=== PATIENT | female | born 1985 | race African-American/Black ===

== ENCOUNTER 2023-12-10 11:48 | Emergency (ER) | payer SELFPAY ==
[2023-12-10] MEDS ORDERED: SILVER SULFADIAZINE 1% 25 GM TOP ONE (12:34)
[2023-12-10] MEDS ORDERED: SMZ./TMP. 800/160 MG TABLET ONE (12:34)
--- NOTE | 2023-12-10 13:00 | EDPHYS ---
Physician Documentation [facility] Name: Va Cardoza Age: 38 yrs Sex: Female : 1985 Arrival Date: 12/10/2023 Time: 11:48 Bed DX1 Private MD: ED Physician Washington Villavicencio HPI: 12/09 12:50 This 38 yrs old Black Female presents to ER via Ambulatory with complaints of Wound yudith Check. 12:50 Patient presents to ED for recheck of: cellulitis. The affected area is on the left yudith leg. Previous treatment: The patient was initially treated 14 day(s) ago. Progress: The patient reports decreased pain. The patient has experienced similar episodes in the past, a few times. Historical: - Allergies: 12:19 No Known Allergies; cm10 - Home Meds: 12:19 None [Active]; cm10 - PMHx: 12:19 None; cm10 - PSHx: 12:19 None; cm10 - Immunization history:: Adult Immunizations up to date. - Infectious Disease History:: Denies. - Social history:: Smoking status: Patient denies any tobacco usage or history of. - Family history:: not pertinent. ROS: 12:50 Constitutional: Negative for fever, chills, and weight loss, Eyes: Negative for injury, yudith pain, redness, and discharge, ENT: Negative for injury, pain, and discharge, Neck: Negative for injury, pain, and swelling, Cardiovascular: Negative for chest pain, palpitations, and edema, Respiratory: Negative for shortness of breath, cough, wheezing, and pleuritic chest pain, Abdomen/GI: Negative for abdominal pain, nausea, vomiting, diarrhea, and constipation, Back: Negative for injury and pain, : Negative for injury, bleeding, discharge, and swelling, Neuro: Negative for headache, weakness, numbness, tingling, and seizure, Psych: Negative for depression, anxiety, suicide ideation, homicidal ideation, and hallucinations, Allergy/Immunology: Negative for hives, rash, and allergies, Endocrine: Negative for neck swelling, polydipsia, polyuria, polyphagia, and marked weight changes, Hematologic/Lymphatic: Negative for swollen nodes, abnormal bleeding, and unusual bruising, 12:50 MS/extremity: Positive for erythema, pain, tenderness, of the left leg, 12:50 Skin: Positive for cellulitis, erythema, swelling, Exam: 12:50 Constitutional: This is a well developed, well nourished patient who is awake, alert, yudith and in no acute distress. Head/Face: Normocephalic, atraumatic. Eyes: Pupils equal round and reactive to light, extra-ocular motions intact. Lids and lashes normal. Conjunctiva and sclera are non-icteric and not injected. Cornea within normal limits. Periorbital areas with no swelling, redness, or edema. ENT: Nares patent. No nasal discharge, no septal abnormalities noted. Tympanic membranes are normal and external auditory canals are clear. Oropharynx with no redness, swelling, or masses, exudates, or evidence of obstruction, uvula midline. Mucous membranes moist. Neck: Trachea midline, no thyromegaly or masses palpated, and no cervical lymphadenopathy. Supple, full range of motion without nuchal rigidity, or vertebral point tenderness. No Meningismus. Chest/axilla: Normal chest wall appearance and motion. Nontender with no deformity. No lesions are appreciated. Cardiovascular: Regular rate and rhythm with a normal S1 and S2. No gallops, murmurs, or rubs. Normal PMI, no JVD. No pulse deficits. Respiratory: Lungs have equal breath sounds bilaterally, clear to auscultation and percussion. No rales, rhonchi or wheezes noted. No increased work of breathing, no retractions or nasal flaring. Abdomen/GI: Soft, non-tender, with normal bowel sounds. No distension or tympany. No guarding or rebound. No evidence of tenderness throughout. Back: No spinal tenderness. No costovertebral tenderness. Full range of motion. Skin: Warm, dry with normal turgor. Normal color with no rashes, no lesions, and no evidence of cellulitis. Neuro: Awake and alert, GCS 15, oriented to person, place, time, and situation. Cranial nerves II-XII grossly intact. Motor strength 5/5 in all extremities. Sensory grossly intact. Cerebellar exam normal. Normal gait. Psych: Awake, alert, with orientation to person, place and time. Behavior, mood, and affect are within normal limits. 12:50 Musculoskeletal/extremity: ROM: no acute changes, intact in all extremities, full active range of motion, full passive range of motion, Pulses: are normal with no appreciated deficits, Sensation intact. Compartment Syndrome exam of affected extremity: is normal. Weight bearing: able to fully bear weight, DVT Exam: no swelling, negative Homans' sign noted on exam, no appreciated bluish discoloration, no increased warmth, pain, tenderness, erythema, 12:50 Skin: abscess, not appreciated, cellulitis, that is minimal, induration, that is mild is noted, injury, is not appreciated, Vital Signs: 12:18 BP 124 / 84; Pulse 83; Resp 16; Temp 98.2; Pulse Ox 100% ; Weight 56.7 kg; Height 5 ft. cm10 3 in. ; Pain 0/10; 12:18 Body Mass Index 22.14 (56.70 kg, 160.02 cm) cm10 12:18 Pain Scale: Adult cm10 MDM: 12:10 Patient medically screened. yudith 12:54 Differential diagnosis: cellulitis. Data reviewed: vital signs, nurses notes. yudith Consideration of Admission/Observation Escalation of care including admission/observation considered. I considered the following discharge prescriptions or medication management in the emergency department Medications were administered in the Emergency Department. See MAR. Test considered but Not performed: Labs: no labs. Historians other than the Patient: pt well informed. Care significantly affected by the following chronic conditions: none. Administered Medications: 12:40 Drug: Silver SulfADIAZINE Topical Cream 1 % 1 application Topical once {Note: Apply ss liberal amount to 2 small wounds on left knee and thigh.} Route: Topical; Site: wound; 12:41 Follow up: Response: No adverse reaction ss 12:40 Drug: Trimethoprim-Sulfamethoxazole PO (160 mg-800 mg (DS) 1 tablet PO once Route: PO; ss 12:41 Follow up: Response: No adverse reaction ss Disposition Summary: 12/10/23 12:59 Discharge Ordered Notes: Location: Home yudith Problem: new yudith Symptoms: have improved yudith Condition: Stable yudith Diagnosis - Unspecified open wound, left lower leg - knee yudith Followup: yudith - With: Private Physician - When: 5 - 6 days - Reason: Recheck today's complaints, Continuance of care, Re-evaluation by your physician Followup: yudith - With: Cole Segura MD - When: 2 - 3 days - Reason: Recheck today's complaints, Re-evaluation by your physician Discharge Instructions: - Discharge Summary Sheet yudith - Delayed Wound Closure yudith - How to Change Your Wound Dressing yudith - Wound Care, Adult yudith - How to Change Your Wound Dressing, [id number] [facility] Forms: - Medication Reconciliation Form yudith - Antibiotic Education yudith - Prescription Opioid Use yudith - Patient Portal Instructions [facility] - Leadership Thank You Letter [facility] Prescriptions: - Silvadene 1 % Topical cream - Apply to affected area 1 application TOPICAL route every 8 hours; 30 gram; [facility] Refills: 0, Product Selection Permitted - Bactrim DS 800-160 mg Oral Tablet - take 1 tablet ORAL route every 12 hours for 10 days; 20 tablet; Refills: 0, [facility] Product Selection Permitted Signatures: Washington Villavicencio MD MD cha Blanchard, Shelby RN RN ss Luna Fuller RN RN cm10
--- NOTE | 2023-12-10 13:00 | ER ---
Nurse's Notes [facility] Name: Va Cardoza Age: 38 yrs Sex: Female : 1985 Arrival Date: 12/10/2023 Time: 11:48 Bed DX1 Private MD: Diagnosis: Unspecified open wound, left lower leg-knee Presentation: 12/09 12:18 Chief complaint: Patient states: Wounds to left knee onset a few weeks ago. Pt states cm10 that she fell. Pt here to have wound checked. No fever or chills. Coronavirus screen: Client denies travel out of the [place] in the last 14 days. Ebola Screen: Patient denies travel to an Ebola-affected area in the 21 days before illness onset. No symptoms or risks identified at this time. Initial Sepsis Screen: Does the patient meet any 2 criteria? No. Patient's initial sepsis screen is negative. Does the patient have a suspected source of infection? No. Patient's initial sepsis screen is negative. Risk Assessment: Do you want to hurt yourself or someone else? Patient reports no desire to harm self or others. Onset of symptoms was December 10, 2023. 12:18 Method Of Arrival: Ambulatory cm10 12:18 Acuity: GITA 4 cm10 Triage Assessment: 12:19 General: Appears in no apparent distress. comfortable, Behavior is calm, cooperative. cm10 Neuro: No deficits noted. Level of Consciousness is awake, alert, obeys commands, Oriented to person, place, time, situation, Appropriate for age. Respiratory: No deficits noted. Airway is patent Respiratory effort is even, unlabored, Respiratory pattern is regular, symmetrical. Derm: Wound noted left knee. Historical: - Allergies: 12:19 No Known Allergies; cm10 - Home Meds: 12:19 None [Active]; cm10 - PMHx: 12:19 None; cm10 - PSHx: 12:19 None; cm10 - Immunization history:: Adult Immunizations up to date. - Infectious Disease History:: Denies. - Social history:: Smoking status: Patient denies any tobacco usage or history of. - Family history:: not pertinent. Screenin:30 [facility] ED Fall Risk Assessment (Adult) History of falling in the last 3 months, ss including since admission No falls in past 3 months (0 pts) Confusion or Disorientation No (0 pts) Intoxicated or Sedated No (0 pts) Impaired Gait No (0 pts) Mobility Assist Device Used No (0 pt) Altered Elimination No (0 pt) Score/Fall Risk Level 0 - 2 = Low Risk Oriented to surroundings. Abuse screen: Denies threats or abuse. Denies injuries from another. Nutritional screening: No deficits noted. Tuberculosis screening: No symptoms or risk factors identified. Assessment: 12:30 General: Appears in no apparent distress. uncomfortable, Behavior is calm, cooperative. ss Pain: Complains of pain in left knee Pain does not radiate. Pain currently is 3 out of 10 on a pain scale. Injury Description: Abrasion sustained to left knee is scabbed, was sustained 3 weeks. Vital Signs: 12:18 BP 124 / 84; Pulse 83; Resp 16; Temp 98.2; Pulse Ox 100% ; Weight 56.7 kg; Height 5 ft. cm10 3 in. ; Pain 0/10; 12:18 Body Mass Index 22.14 (56.70 kg, 160.02 cm) cm10 12:18 Pain Scale: Adult cm10 ED Course: 11:53 Patient arrived in ED. mg5 12:10 Washington Villavicencio MD is Attending Physician. [facility] 12:19 Triage completed. cm10 12:20 Arm band placed on Patient placed in an exam room, on a stretcher. cm10 12:30 Patient has correct armband on for positive identification. Provided Education on: Plan ss of care. 12:30 No provider procedures requiring assistance completed. Patient did not have IV access ss during this emergency room visit. 12:58 Cole Segura MD is Referral Physician. [facility] Administered Medications: 12:40 Drug: Silver SulfADIAZINE Topical Cream 1 % 1 application Topical once {Note: Apply ss liberal amount to 2 small wounds on left knee and thigh.} Route: Topical; Site: wound; 12:41 Follow up: Response: No adverse reaction 12:40 Drug: Trimethoprim-Sulfamethoxazole PO (160 mg-800 mg (DS) 1 tablet PO once Route: PO; ss 12:41 Follow up: Response: No adverse reaction ss Medication: 12:30 VIS not applicable for this client. ss Outcome: 12:59 Discharge ordered by . [facility] 13:09 Discharged to home ambulatory, 13:09 Condition: stable 13:09 Discharge instructions given to patient, Instructed on discharge instructions, follow up and referral plans. medication usage, wound care, Demonstrated understanding of instructions, follow-up care, medications, wound care, Prescriptions given X 2, 13:10 Patient left the ED. ss Signatures: Washington Villavicencio MD MD cha Blanchard, Shelby, RN RN ss Luna Fuller RN RN cm10 Aleena Vaca mg5
[2023-12-10 13:29] VITALS: BP 124/84; TEMP 98.2; O2SAT 100
== END 2023-12-10 13:10 | disposition home or self-care (01) ==
LOC: ER 11:48
DX: S81.002A Unspecified open wound, left knee, initial encounter (principal)
CPT/HCPCS: 99283